=== PATIENT | male | born 1965 | race Caucasian/White ===

== ENCOUNTER → 2023-02-19 | Outpatient (CLI) | payer OTHER, BC ==
[~2023-02-19] MED LIST: HYDROCODONE BIT1 T11 PO
== END | disposition home or self-care (01) ==
LOC: RAD 12:09
PROVIDERS: ATTEND Internal Medicine
DX: M17.0 Bilateral primary osteoarthritis of knee (principal); M25.762 Osteophyte, left knee; M25.761 Osteophyte, right knee; M19.041 Primary osteoarthritis, right hand

== ENCOUNTER → 2023-09-04 | Outpatient (CLI) | payer BC ==
[~2023-09-04] MED LIST changes: +ATENOLOL25 MG PO; +LEVOTHYROXINE25 MCG PO; +LIPITOR10 MG PO; +LISINOPRIL-HCT1 EACH PO; +MELOXICAM15 MG PO; +NORVASC10 MG PO
== END | disposition home or self-care (01) ==
LOC: CARD 01:31
PROVIDERS: ATTEND Internal Medicine
DX: I49.3 Ventricular premature depolarization (principal); I49.1 Atrial premature depolarization

== ENCOUNTER → 2024-04-07 | Outpatient (CLI) | payer BC, OTHER ==
[2024-04-07 14:56] LABS: ALKALINE PHOSPHATASE 99 U/L (46-116); BUN 14 mg/dl (9-23); CHLORIDE 108 mmol/L (98-107); POTASSIUM 3.9 mmol/L (3.4-5.1); SGPT/ALT 42 U/L (5-49); TOTAL PROTEIN 6.8 gm/dL (6.0-8.0)
== END | disposition home or self-care (01) ==
LOC: LAB 14:12
PROVIDERS: ATTEND Internal Medicine
DX: M17.0 Bilateral primary osteoarthritis of knee (principal); I10 Essential (primary) hypertension; R60.0 Localized edema; M25.461 Effusion, right knee; M25.462 Effusion, left knee